=== PATIENT | female | born 1990 | race Caucasian/White ===

== ENCOUNTER → 2018-02-04 | Outpatient (CLI) | payer BC | LOC: SUN.DIA 08:41 | DX: O24.419 Gestational diabetes mellitus in pregnancy, unspecified control (principal); Z3A.32 32 weeks gestation of pregnancy; O13.3 Gestational [pregnancy-induced] hypertension without significant proteinuria, third trimester; Z71.3 Dietary counseling and surveillance | CPT/HCPCS: G0108 ==

== ENCOUNTER → 2018-02-24 | Outpatient (CLI) | payer BC | LOC: SUN.DIA 11:32 | DX: O24.419 Gestational diabetes mellitus in pregnancy, unspecified control (principal); Z3A.34 34 weeks gestation of pregnancy; Z71.3 Dietary counseling and surveillance | CPT/HCPCS: G0108 ==

== ENCOUNTER → 2018-03-12 | Outpatient (CLI) | payer BC | LOC: SUN.DIA 09:57 | DX: O24.419 Gestational diabetes mellitus in pregnancy, unspecified control (principal); Z3A.37 37 weeks gestation of pregnancy; Z71.3 Dietary counseling and surveillance; O16.3 Unspecified maternal hypertension, third trimester | CPT/HCPCS: G0108 ==

== ENCOUNTER 2018-03-18 15:40 | Inpatient (IN) | payer BC ==
[~2018-03-18] VITALS: Ht 167.6 cm; Wt 99.5 kg
[2018-04-06] VITALS (21 sets, daily range): BP systolic 122–161; BP diastolic 61–91; PULSE 84–115; TEMP 97.6–98.7
[2018-04-06] MEDS ORDERED: PRENATAL (06:48)
[2018-04-06] MEDS ORDERED: DIABETA 2.5MG2.5 MG PO (06:49)
[2018-04-06] MEDS ORDERED: ZANTAC 150MG T150 MG PO (06:51)
[2018-04-06 06:54] LABS: BASO % 0.3 % (0.0-2.0); EOS # 0.2 (0.0-0.7); EOS % 1.5 % (0-4.0); GRAN % 71.3 % (42.2-75.2); HEMATOCRIT 38.1 % (37.0-47.0); HEMOGLOBIN 12.9 g/dl (12.5-16.0); LYMPH # 2.3 (1.2-3.4); LYMPH % 20.3 % (20.0-51.0); MEAN CELL VOLUME 84 fl (80.0-100.0); MEAN CORPUSCULAR HEMOGLOBIN 29 pg (27.0-31.0); MEAN CORPUSCULAR HGB CONC 34 g/dl (33.0-37.0); MEAN PLATELET VOLUME 10.8 fl (7.4-10.4); MONO # 0.7 (0.1-0.6); MONO % 6.1 % (1.7-9.3); PLATELET COUNT 198 K/mm3 (130-400); RED BLOOD COUNT 4.52 M/mm3 (4.10-5.30); REDCELL DISTRIBUTION WIDTH-CV 13.2 % (11.5-14.5)
[2018-04-07 04:55] VITALS: BP 122/80; PULSE 93; TEMP 97.6
[2018-04-07 08:40] VITALS: BP 117/64; PULSE 91; TEMP 98
[2018-04-07 16:00] VITALS: BP 128/82; PULSE 88; TEMP 98.2
[2018-04-07 22:00] VITALS: BP 137/80; PULSE 92; TEMP 98.4
[2018-04-08 02:24] VITALS: BP 126/78; PULSE 86; TEMP 98.5
[2018-04-08 08:30] VITALS: BP 128/69; PULSE 97; TEMP 98.6
[2018-04-08] MEDS ORDERED: IBU600 MG PO (09:16)
[2018-04-08] MEDS ORDERED: PERCOCET 325 MG1 TA2 PO (09:16)
== END 2018-04-08 15:35 | disposition home or self-care (01) | DRG 766 ==
LOC: OB 04-06 05:36 → LDR 04-06 07:45 → EDSTATUS 04-06 07:45 → LDRO 04-06 15:40 → OB 04-08 15:35
PROVIDERS: Obstetrics & Gynecology
PROC: 10D00Z1 Extraction of Products of Conception, Low, Open Approach (ICD-10-PCS; principal; 2018-04-06)
DX: O34.211 Maternal care for low transverse scar from previous cesarean delivery (principal); O24.420 Gestational diabetes mellitus in childbirth, diet controlled; Z3A.39 39 weeks gestation of pregnancy; Z37.0 Single live birth
CPT/HCPCS: J0690; J2270; J2370; J2405; J2590; J3010; J7120

== ENCOUNTER 2018-09-24 09:22 | Emergency (ER) | payer OTHER, BC ==
[~2018-09-24] VITALS: Ht 167.6 cm; Wt 88.6 kg
[~2018-09-24 09:22] MED LIST: DIABETA 2.5MG2.5 MG PO; IBU600 MG PO; PERCOCET 325 MG1 TA2 PO; PRENATAL; ZANTAC 150MG T150 MG PO
[2018-09-24 09:24] VITALS: BP 132/82; PULSE 99; TEMP 98.2
[2018-09-24] MEDS ORDERED: MOTRIN 800800 MG/TAB PO (10:48)
[2018-09-24] MEDS ORDERED: LIDODERM 5% PATC1 EA TP (10:48)
== END 2018-09-24 11:14 | disposition home or self-care (01) ==
LOC: COL.ER 09:22
DX: S16.1XXA Strain of muscle, fascia and tendon at neck level, initial encounter (principal); G44.209 Tension-type headache, unspecified, not intractable; Z88.2 Allergy status to sulfonamides; V43.52XA Car driver injured in collision with other type car in traffic accident, initial encounter
CPT/HCPCS: J1885